=== PATIENT | female | born 1935 | race Caucasian/White ===

== ENCOUNTER → 2019-05-27 | Outpatient (CLI) | payer MEDICARE, OTHER ==
[~2019-05-27] MED LIST: AMLODIPINE BESYL5 MG PO; ASPIR 8181 MG PO; ASPIRIN81 M2 PO; B12 PO; BIOTIN5 MG PO; BIOTIN5000 MCG PO; CALCIUM 1200; CALCIUM PO; CARDIZEM CD240 MG PO; DARVOCET PO; ESTRADIOL 1 MG T1 M1; ETODOLAC 400 M400 M1 PO; FISH OIL 1,001000 M2 PO; FLONASE 0.05%50 MCG NASAL; L-THYROXINE PO; LEVAQUIN 500 M500 M2 PO; LEVOTHYROXIN0.112 M1 PO; LOSARTAN POTASS25 MG PO; MOBIC15 MG PO; MULTIPLE VITAM1 EAC3 PO; NAPROSYN500 MG PO; NEURONTIN600 MG PO; NEXIUM40 MG PO; NORVASC10 MG PO; PERCOCET 10-321 EAC1 PO; SYNTHROID125 MCG PO; TUMS PO; UNICOMPLEX M TA1 TA1 PO; URECHOLINE 25 M25 M1; VITAMIN D 11000 UNIT PO; VITAMIN D2000 UNIT PO; XARELTO10 MG PO; ZOFRAN ODT4 MG PO
== END ==
LOC: M.ULTRA 09:00
DX: R59.9 Enlarged lymph nodes, unspecified (principal)

== ENCOUNTER → 2019-06-18 | Outpatient (CLI) | payer MEDICARE, OTHER | LOC: M.CT 11:03 | DX: M47.812 Spondylosis without myelopathy or radiculopathy, cervical region (principal); G31.9 Degenerative disease of nervous system, unspecified; J98.4 Other disorders of lung; Z88.8 Allergy status to other drugs, medicaments and biological substances; Z88.2 Allergy status to sulfonamides ==

== ENCOUNTER → 2021-09-23 | Outpatient (CLI) | payer MEDICARE, OTHER | LOC: M.RAD 09:24 | PROVIDERS: ATTEND Family Medicine | DX: Z12.31 Encounter for screening mammogram for malignant neoplasm of breast (principal) ==